=== PATIENT | female | born 1980 | race African-American/Black ===

== ENCOUNTER 2019-09-13 19:44 | Emergency (ER) | payer BC, MEDICAID ==
[~2019-09-13] VITALS: Ht 172.7 cm; Wt 74.8 kg
[2019-09-13 20:11] VITALS: BP 126/73
[2019-09-13] MEDS ORDERED: ONDANSETRON HCL 4MG/2ML INJ IV STA (21:31)
[2019-09-13] MEDS ORDERED: SODIUM CHLORIDE 0.9% 1,000 ML IV ONE (21:31)
[2019-09-13] MEDS ORDERED: ACETAMINOPHEN 500MG TABLET PO ONE (21:45)
[2019-09-13 23:04] LABS: BASOPHILS % 0.3 % (0.0-2.0); EOSINOPHILS % 0.1 % (0.0-5.0); HEMATOCRIT. 36.9 % (36.0-48.0); HEMOGLOBIN. 12.3 g/dL (12.0-16.0); LYMPHOCYTES % 18.5 % (20.0-50.0); MEAN CORPUSCULAR HEMOGLOBIN 29.3 pg (28.0-32.0); MEAN PLATELET VOLUME 8.6 fl (7.4-10.4); MONOCYTES % 3.4 % (2.0-8.0); NEUTROPHILS % 77.7 % (40.0-76.0); PLATELET 242 x1000/uL (130-400); RED BLOOD CELL COUNT 4.19 mill/uL (4.2-5.4); RED CELL DISTRIBUTION WIDTH 13.3 % (11.6-14.6)
[2019-09-13 23:09] LABS: CHLORIDE 104 mEq/L (98-107)
[2019-09-13 23:14] LABS: HCG SCREEN NEGATIVE
== END 2019-09-13 23:55 | disposition home or self-care (01) ==
LOC: ER 19:44
DX: R05 Cough (principal); Z20.828 Contact with and (suspected) exposure to other viral communicable diseases; R50.9 Fever, unspecified; R53.83 Other fatigue
CPT/HCPCS: 36415; 71045; 80053; 83880; 84484; 84703; 85025; 93005; 96374; 99285; C9803; J2405; J7030; U0003

== ENCOUNTER 2021-01-29 15:09 | Emergency (ER) | payer BC, OTHER ==
[~2021-01-29] VITALS: Ht 172.7 cm; Wt 73.0 kg
[2021-01-29] MEDS ORDERED: CYCLOBENZAPRINE 10MG TABLET PO STA (15:19)
[2021-01-29] MEDS ORDERED: KETOROLAC 30MG/ML VIAL IM ONE (15:30)
[2021-01-29] MEDS ORDERED: MED4 MT (16:58)
[2021-01-29] MEDS ORDERED: IBUP-2029 MT (16:58)
[2021-01-29] MEDS ORDERED: HYDR-4001 MT (16:58)
[2021-01-29] MEDS ORDERED: CYCL10TA7 MT (16:58)
[2021-01-29] MEDS ORDERED: ONDANSETRON 4MG ODT PO ONE (17:00)
[2021-01-29] MEDS ORDERED: MORPHINE SULFATE 10 MG/ML CPJ IM ONE (17:00)
[2021-01-29 17:30] VITALS: BP 128/74
== END 2021-01-29 17:39 | disposition home or self-care (01) ==
LOC: ER 15:09
DX: M54.50 Low back pain, unspecified (principal); I49.9 Cardiac arrhythmia, unspecified; Z98.890 Other specified postprocedural states
CPT/HCPCS: 72110; 81025; 93005; 96372; 99284; J1885; J2270; Q0162

== ENCOUNTER → 2021-02-08 | Outpatient (CLI) | payer OTHER ==
[~2021-02-08] MED LIST: CYCL10TA7 MT; HYDR-4001 MT; IBUP-2029 MT; MED4 MT
== END | disposition home or self-care (01) ==
LOC: MRI 10:36
PROVIDERS: ATTEND Family Medicine Adult Medicine
DX: S39.012A Strain of muscle, fascia and tendon of lower back, initial encounter (principal); M51.36 Other intervertebral disc degeneration, lumbar region; M51.27 Other intervertebral disc displacement, lumbosacral region; X58.XXXA Exposure to other specified factors, initial encounter; Y93.89 Activity, other specified; Y92.89 Other specified places as the place of occurrence of the external cause; Y99.8 Other external cause status
CPT/HCPCS: 72148